=== PATIENT | female | born 1940 | race Caucasian/White ===

== ENCOUNTER 2019-02-18 01:11 | Inpatient (IN) | payer MEDICARE ==
[~2019-02-18] VITALS: Ht 152.4 cm; Wt 72.8 kg
--- NOTE | ~2019-02-18 | EKG ---
[place], [place] ELECTROCARDIOGRAM REPORT NAME: YODIT PHAM UNIT #: [id number] ROOM: 506 DOCTOR: EPIPHANY DRAFT REPORT BIRTHDATE: [birth year] [facility] Test Date: 2019-02-18 Test Time: 01:25:38 Pat Name: YODIT PHAM Department: Room: 506 Gender: F Combiner: : 1940 Requested By: FLEX MARQUEZ Order Number: [id number] Reading MD: Mukesh Mason MD Measurements Intervals Groom Rate: 70 P: 52 HI: 187 QRS: 10 QRSD: 84 T: 33 QT: 391 QTc: 422 Interpretive Statements Sinus rhythm Low voltage, precordial leads Electronically Signed On 02-18-2019 5:49:55 PDT by Mukesh Mason MD CM:EKGRPT:ELECTROCARDIOGRAM REPORT [id number] FLEX MARQUEZ MD EPIPHANY DRAFT REPORT FLEX MARQUEZ MD
[~2019-02-18 01:11] MED LIST: ASPIRIN ADULT L81 M1 PO; CIPRO500 MG PO; FLAGYL500 MG PO; FLAXSEED1000 MG PO; MASON NATURAL600 MG PO; METAMUCIL PACK3.4 GM PO; MIRALAX POWDER17 G1 PO
[2019-02-18 01:12] VITALS: BP 164/77
--- NOTE | 2019-02-18 01:15 | NUR ---
PT TO TREATMENT ROOM IN NO ACUTE DISTRESS, PLACED IN GOWN, ASSESSMENT COMPLETE, PT A&O, RESP EASY, LUNGS CLEAR, ABD SOFT WITH BS X 4, MD IN TO EVALUATE PT, CALL JACKSON GIVEN
[2019-02-18] MEDS ORDERED: PRESERVISION A1 EAC1 PO (01:25)
--- NOTE | 2019-02-18 01:25 | NUR ---
EKG COMPLETED ORDERED
--- NOTE | 2019-02-18 01:42 | NUR ---
PORTABLE CXR COMPLETE ORDERED, CLEAN CATCH UA OBTAINED AND SENT TO LAB, CLEAR, YELLOW URINE NOTED, LAB WORK DRAWN BY AIR ANTISUBMARINE OFFICER ORDERED BY
[2019-02-18 01:46] LABS: BASO # 0.1 10*3/uL (0.0-0.1); EOS # 0.1 10*3/uL (0.0-0.4); EOS % 0.9 % (1.0-4.0); HEMATOCRIT 38.9 % (37.0-47.0); HEMOGLOBIN 12.7 g/dl (12.0-16.0); LYMPH # 1.6 10*3/uL (1.3-4.4); MEAN CELL VOLUME 88.6 fl (81.0-99.0); MEAN CORPUSCULAR HGB 28.9 pg (27.0-31.0); MEAN CORPUSCULAR HGB CONC 32.6 g/dl (33.0-37.0); MEAN PLATELET VOLUME 9.2 fl (9.6-12.3); MONO # 0.7 10*3/uL (0.1-1.0); MONO % 9.4 % (3.0-9.0); NEUT # 5.2 10*3/uL (2.3-7.9); NEUT % 67.4 % (47.0-73.0); PLATELET COUNT AUTOMATED 242 10*3/uL (130-400); RED BLOOD COUNT 4.39 10*6/uL (4.10-5.10); RED CELL DISTRI WIDTH 12.5 % (0-14.5); WHITE BLOOD COUNT 7.7 10*3/uL (4.8-10.8)
--- NOTE | 2019-02-18 01:47 | NUR ---
CT COMPLETE ORDERED
[2019-02-18 01:57] LABS: ACT PARTIAL THROMBO TIME 24.8 SECONDS (20.0-32.1); INTERNATIONAL NORM RATIO 0.9 (2.0-3.5)
[2019-02-18 02:03] LABS: BILIRUBIN NEGATIVE (NEGATIVE); BLOOD NEGATIVE (NEGATIVE); CLARITY CLEAR (CLEAR); COLOR YELLOW (YELLOW); GLUCOSE NEGATIVE (NEGATIVE); KETONE NEGATIVE (NEGATIVE); LEUKO ESTERASE NEGATIVE (NEGATIVE); NITRITE NEGATIVE (NEGATIVE); SPECIFIC GRAVITY <= 1.005 (1.005-1.030); UROBILINOGEN 0.2 E.U./dl (0.2-1.0)
[2019-02-18 02:09] LABS: ALBUMIN 3.8 gm/dl (3.1-4.5); ALKALINE PHOSPHATASE 95 U/L (45-117); BUN 14 mg/dl (7-24); CHLORIDE 111 mmol/L (98-107); CREATININE 0.76 mg/dL (0.55-1.02); SGOT/AST 16 IU/L (3-35); SGPT/ALT 21 U/L (12-78); SODIUM 143 mmol/L (136-145); TOTAL PROTEIN 7.4 gm/dL (6.4-8.2); TROPONIN I < 0.015 ng/ml (<0.045)
[2019-02-18 02:11] LABS: RBC 0-2 rbc/hpf (0-2); WBC 0-2 wbc/hpf (0-5)
[2019-02-18 02:12] LABS: BACTERIA 1+
[2019-02-18 02:13] VITALS: BP 146/67
--- NOTE | 2019-02-18 02:43 | NUR ---
PT RESTING QUIETLY, DIZZINESS IMPROVED
[2019-02-18 03:11] VITALS: BP 162/80
[2019-02-18 04:05] VITALS: BP 165/74
--- NOTE | 2019-02-18 04:05 | NUR ---
A 78, admitted to , under the services of ESTEFANY Mallory DO with a diagnosis of VERTIGO. Chief complaint is DIZZINESS AND NAUSEA STARTING AT 1999. Patient arrived via bed from ER. Monitor applied. Initial assessment completed. Vital signs taken and recorded. ESTEFANY MALLORY DO notified of admission to TELEMETRY . Orders received. See assessment for past medical history, medications and allergies. Patient and/or family oriented to unit. [facility] visitation policy reviewed. Clothing/patient valuable form completed. MITCHELL HINDS
--- NOTE | 2019-02-18 04:07 | NUR ---
PT ADMITTED TO 5TH FLOOR VIA STRETCHER , SR ON MONITOR, RESP EASY, SALINE LOCK PATENT WITH NO REDNESS OR SWELLING, BELONGINGS WITH PT
--- NOTE | 2019-02-18 04:20 | NUR ---
DR ALBA PRESENT ON FLOOR TO ASSESS PATIENT AND DISCUSS PLAN OF CARE
--- NOTE | 2019-02-18 05:00 | NUR ---
ORTHOS: LAYING 152/84 102 SITTING 168/80 104 STANDING 120/64 78
[2019-02-18 06:17] LABS: BASO # 0.1 10*3/uL (0.0-0.1); EOS % 0.6 % (1.0-4.0); HEMATOCRIT 36.3 % (37.0-47.0); HEMOGLOBIN 11.8 g/dl (12.0-16.0); LYMPH # 1.8 10*3/uL (1.3-4.4); LYMPH % 25.6 % (27.0-41.0); MEAN CELL VOLUME 89.6 fl (81.0-99.0); MEAN CORPUSCULAR HGB 29.1 pg (27.0-31.0); MEAN CORPUSCULAR HGB CONC 32.5 g/dl (33.0-37.0); MEAN PLATELET VOLUME 9.6 fl (9.6-12.3); MONO # 0.8 10*3/uL (0.1-1.0); MONO % 11.1 % (3.0-9.0); NEUT # 4.4 10*3/uL (2.3-7.9); NEUT % 61.3 % (47.0-73.0); PLATELET COUNT AUTOMATED 238 10*3/uL (130-400); RED BLOOD COUNT 4.05 10*6/uL (4.10-5.10); RED CELL DISTRI WIDTH 12.7 % (0-14.5); WHITE BLOOD COUNT 7.2 10*3/uL (4.8-10.8)
[2019-02-18 06:20] LABS: ALBUMIN 3.4 gm/dl (3.1-4.5); ALKALINE PHOSPHATASE 85 U/L (45-117); BUN 13 mg/dl (7-24); CHLORIDE 110 mmol/L (98-107); CHOLESTEROL 208 mg/dL (<200); CREATININE 0.65 mg/dL (0.55-1.02); HDL CHOLESTEROL 46 mg/dl (40-60); LDL CHOLESTEROL 134 mg/dL (9-159); PHOSPHOROUS 2.4 mg/dL (2.5-4.9); POTASSIUM 3.7 mmol/L (3.5-5.1); SGOT/AST 15 IU/L (3-35); SGPT/ALT 18 U/L (12-78); SODIUM 142 mmol/L (136-145); TOTAL PROTEIN 6.8 gm/dL (6.4-8.2); TRIGLYCERIDES 141 mg/dl (<150); VLDL CHOLESTEROL 28 mg/dL (6-40)
[2019-02-18 06:26] LABS: THYROID STIM HORMONE (HS) 0.921 uIU/ml (0.358-4.75)
[2019-02-18 06:34] LABS: TROPONIN I < 0.015 ng/ml (<0.045)
[2019-02-18 07:45] VITALS: BP 154/80
--- NOTE | 2019-02-18 07:45 | NUR ---
PT RESTING IN BED. RESP-EASY AND REGULAR. NO C/O AT THIS TIME. DENIES N/V AND DIZZINESS. CALL LIGHT IN REACH. SEE SHIFT ASSESSMENT.
[2019-02-18 07:59] LABS: VITAMIN D, 25-HYDROXY 14.6 ng/mL (30-100)
[2019-02-18] MEDS ORDERED: LISINOPRIL10 M1 PO (09:36)
--- NOTE | 2019-02-18 10:54 | NUR ---
Discharge instructions reviewed with patient/family. Patient receptive and verbalizes understanding. Follow-up care arranged. Written instructions given to patient/family. HEPLOCK REMOVED 2X2 APPLIED. MONITOR REMOVED. VALENTÍN TRAN
--- NOTE | 2019-02-18 12:22 | NUR ---
PT ESCORTED VIA WHEELCHAIR FOR DISCHARGE WITH VISITOR AT HER SIDE.
== END 2019-02-18 12:22 | disposition home or self-care (01) | DRG 149 ==
LOC: ED 01:11 → 5E 03:40 → EDHOLD 03:40 → 5E 03:56
PROVIDERS: Emergency Medicine Emergency Medical Services; Student in an Organized Health Care Education/Training Program; ADMIT Internal Medicine
DX: R42 Dizziness and giddiness (principal); E44.1 Mild protein-calorie malnutrition; E87.8 Other disorders of electrolyte and fluid balance, not elsewhere classified; K59.00 Constipation, unspecified; E66.9 Obesity, unspecified; R03.0 Elevated blood-pressure reading, without diagnosis of hypertension; R73.9 Hyperglycemia, unspecified; E83.41 Hypermagnesemia; E83.39 Other disorders of phosphorus metabolism; Z88.6 Allergy status to analgesic agent; Z80.1 Family history of malignant neoplasm of trachea, bronchus and lung; Z79.82 Long term (current) use of aspirin; Z90.710 Acquired absence of both cervix and uterus; Z82.0 Family history of epilepsy and other diseases of the nervous system; Z68.31 Body mass index [BMI] 31.0-31.9, adult

== ENCOUNTER → 2020-11-01 | Outpatient (CLI) | payer MEDICARE ==
[~2020-11-01] MED LIST changes: +LISINOPRIL10 M1 PO; +PRESERVISION A1 EAC1 PO
== END | disposition home or self-care (01) ==
LOC: US 14:53
PROVIDERS: ATTEND Family Medicine
DX: M79.661 Pain in right lower leg (principal)

== ENCOUNTER 2020-11-02 15:21 | Emergency (ER) | payer MEDICARE ==
[~2020-11-02] VITALS: Ht 154.9 cm; Wt 70.3 kg
== END 2020-11-02 16:25 | disposition home or self-care (01) ==
LOC: ED 15:21
DX: S86.911A Strain of unspecified muscle(s) and tendon(s) at lower leg level, right leg, initial encounter (principal); Z88.6 Allergy status to analgesic agent; Z79.899 Other long term (current) drug therapy; Z79.82 Long term (current) use of aspirin; Z90.711 Acquired absence of uterus with remaining cervical stump; Z90.49 Acquired absence of other specified parts of digestive tract; Z98.890 Other specified postprocedural states; X58.XXXA Exposure to other specified factors, initial encounter; Y93.89 Activity, other specified; Y92.89 Other specified places as the place of occurrence of the external cause; Y99.8 Other external cause status

== ENCOUNTER 2021-04-21 10:27 | Emergency (ER) | payer MEDICARE ==
[~2021-04-21] VITALS: Ht 152.4 cm; Wt 71.2 kg
[2021-04-21 11:39] LABS: BASO % 0.3 % (0.0-1.0); LYMPH # 0.8 10*3/uL (1.3-4.4); LYMPH % 10.8 % (27.0-41.0); MEAN CELL VOLUME 90.5 fl (81.0-99.0); MEAN CORPUSCULAR HGB 28.6 pg (27.0-31.0); MEAN CORPUSCULAR HGB CONC 31.6 g/dl (33.0-37.0); MEAN PLATELET VOLUME 9.1 fl (9.6-12.3); MONO % 14.5 % (3.0-9.0); NEUT # 5.1 10*3/uL (2.3-7.9); PLATELET COUNT AUTOMATED 205 10*3/uL (130-400); RED CELL DISTRI WIDTH 13.2 % (0-14.5)
[2021-04-21 11:51] LABS: ACT PARTIAL THROMBO TIME 26.3 SECONDS (20.0-32.1)
[2021-04-21 11:55] LABS: ALBUMIN 3.3 gm/dl (3.1-4.5); ALKALINE PHOSPHATASE 102 U/L (45-117); BUN 12 mg/dl (7-24); CHLORIDE 107 mmol/L (98-107); CPK 74 U/L (26-192); CREATININE 0.77 mg/dL (0.55-1.02); POTASSIUM 4.1 mmol/L (3.5-5.1); SGOT/AST 20 IU/L (3-35); SGPT/ALT 21 U/L (12-78); SODIUM 138 mmol/L (136-145); TOTAL PROTEIN 7.3 gm/dL (6.4-8.2)
== END 2021-04-21 12:26 | disposition home or self-care (01) ==
LOC: ED 10:27
PROVIDERS: Emergency Medicine
DX: U07.1 COVID-19 (principal)

== ENCOUNTER 2021-04-24 11:58 | Inpatient (IN) | payer MEDICARE ==
[~2021-04-24] VITALS: Ht 152 cm; Wt 71.0 kg
[2021-04-24 12:04] VITALS: BP 123/50
[2021-04-24 13:10] LABS: BASO % 0.2 % (0.0-1.0); HEMATOCRIT 34.8 % (37.0-47.0); LYMPH # 0.7 10*3/uL (1.3-4.4); LYMPH % 14.4 % (27.0-41.0); MEAN CELL VOLUME 88.1 fl (81.0-99.0); MEAN CORPUSCULAR HGB 28.1 pg (27.0-31.0); MEAN CORPUSCULAR HGB CONC 31.9 g/dl (33.0-37.0); MEAN PLATELET VOLUME 9.1 fl (9.6-12.3); MONO % 19.5 % (3.0-9.0); NEUT # 3.2 10*3/uL (2.3-7.9); NEUT % 64.7 % (47.0-73.0); PLATELET COUNT AUTOMATED 176 10*3/uL (130-400); RED BLOOD COUNT 3.95 10*6/uL (4.10-5.10); RED CELL DISTRI WIDTH 13.4 % (0-14.5); WHITE BLOOD COUNT 4.9 10*3/uL (4.8-10.8)
[2021-04-24 13:26] LABS: ALBUMIN 2.8 gm/dl (3.1-4.5); ALKALINE PHOSPHATASE 76 U/L (45-117); BUN 18 mg/dl (7-24); CHLORIDE 103 mmol/L (98-107); CREATININE 0.66 mg/dL (0.55-1.02); POTASSIUM 3.5 mmol/L (3.5-5.1); SGOT/AST 29 IU/L (3-35); SGPT/ALT 23 U/L (12-78); SODIUM 134 mmol/L (136-145); TOTAL PROTEIN 6.5 gm/dL (6.4-8.2)
[2021-04-24 13:54] VITALS: BP 120/58
[2021-04-24 17:37] VITALS: BP 125/61
[2021-04-24 18:40] VITALS: BP 134/71
[2021-04-24 18:46] VITALS: BP 134/71
[2021-04-25] VITALS: BP 149/77
[2021-04-25 06:02] LABS: ALBUMIN 2.8 gm/dl (3.1-4.5); ALKALINE PHOSPHATASE 81 U/L (45-117); BUN 18 mg/dl (7-24); CHLORIDE 106 mmol/L (98-107); SGOT/AST 31 IU/L (3-35); SGPT/ALT 25 U/L (12-78); SODIUM 138 mmol/L (136-145)
[2021-04-25 06:04] LABS: BASO % 0.3 % (0.0-1.0); HEMATOCRIT 36.1 % (37.0-47.0); LYMPH # 0.8 10*3/uL (1.3-4.4); LYMPH % 21.7 % (27.0-41.0); MEAN CELL VOLUME 85.1 fl (81.0-99.0); MEAN CORPUSCULAR HGB 28.1 pg (27.0-31.0); MEAN PLATELET VOLUME 9.6 fl (9.6-12.3); MONO # 0.6 10*3/uL (0.1-1.0); MONO % 17.5 % (3.0-9.0); NEUT # 2.1 10*3/uL (2.3-7.9); NEUT % 59.7 % (47.0-73.0); PLATELET COUNT AUTOMATED 211 10*3/uL (130-400); RED BLOOD COUNT 4.24 10*6/uL (4.10-5.10); RED CELL DISTRI WIDTH 13.1 % (0-14.5); WHITE BLOOD COUNT 3.6 10*3/uL (4.8-10.8)
[2021-04-25 08:00] VITALS: BP 142/78
[2021-04-25 12:00] VITALS: BP 129/79
[2021-04-25 16:00] VITALS: BP 145/76
[2021-04-25 20:00] VITALS: BP 139/65
[2021-04-26] VITALS: BP 138/66
[2021-04-26 06:00] LABS: ALBUMIN 2.7 gm/dl (3.1-4.5); ALKALINE PHOSPHATASE 75 U/L (45-117); BUN 22 mg/dl (7-24); CHLORIDE 106 mmol/L (98-107); CREATININE 0.64 mg/dL (0.55-1.02); POTASSIUM 4.1 mmol/L (3.5-5.1); SGOT/AST 32 IU/L (3-35); SGPT/ALT 25 U/L (12-78); SODIUM 139 mmol/L (136-145); TOTAL PROTEIN 6.7 gm/dL (6.4-8.2)
[2021-04-26 06:20] LABS: BASO % 0.2 % (0.0-1.0); HEMATOCRIT 35.7 % (37.0-47.0); LYMPH # 1.6 10*3/uL (1.3-4.4); LYMPH % 15.8 % (27.0-41.0); MEAN CELL VOLUME 86.9 fl (81.0-99.0); MEAN CORPUSCULAR HGB 28.5 pg (27.0-31.0); MEAN CORPUSCULAR HGB CONC 32.8 g/dl (33.0-37.0); MEAN PLATELET VOLUME 9.8 fl (9.6-12.3); MONO # 1.3 10*3/uL (0.1-1.0); MONO % 12.8 % (3.0-9.0); NEUT # 6.9 10*3/uL (2.3-7.9); NEUT % 70.5 % (47.0-73.0); PLATELET COUNT AUTOMATED 245 10*3/uL (130-400); RED BLOOD COUNT 4.11 10*6/uL (4.10-5.10); RED CELL DISTRI WIDTH 12.9 % (0-14.5); WHITE BLOOD COUNT 9.8 10*3/uL (4.8-10.8)
[2021-04-26 08:00] VITALS: BP 149/63
[2021-04-26 12:00] VITALS: BP 139/68
[2021-04-26] MEDS ORDERED: OXYGEN NAS (12:25)
[2021-04-26] MEDS ORDERED: DEXAMETHASONE6 MG PO (12:25)
== END 2021-04-26 16:12 | disposition home or self-care (01) | DRG 177 ==
LOC: ED 11:58 → 4E 15:41 → EDHOLD 15:41 → 4E 19:11
PROVIDERS: Internal Medicine; Student in an Organized Health Care Education/Training Program; ADMIT Internal Medicine; ATTEND Internal Medicine
PROC: XW033E5 Introduction of Remdesivir Anti-infective into Peripheral Vein, Percutaneous Approach, New Technology Group 5 (ICD-10-PCS; principal; 2021-04-25)
DX: U07.1 COVID-19 (principal); J96.01 Acute respiratory failure with hypoxia; E43 Unspecified severe protein-calorie malnutrition; E87.1 Hypo-osmolality and hyponatremia; D64.9 Anemia, unspecified; R73.9 Hyperglycemia, unspecified; E55.9 Vitamin D deficiency, unspecified; E66.9 Obesity, unspecified; Z68.30 Body mass index [BMI] 30.0-30.9, adult; I10 Essential (primary) hypertension; Z90.49 Acquired absence of other specified parts of digestive tract; Z90.710 Acquired absence of both cervix and uterus; Z88.6 Allergy status to analgesic agent; Z79.82 Long term (current) use of aspirin; Z79.899 Other long term (current) drug therapy; Z80.1 Family history of malignant neoplasm of trachea, bronchus and lung; Z80.42 Family history of malignant neoplasm of prostate

== ENCOUNTER 2021-06-01 18:09 | Emergency (ER) | payer MEDICARE ==
[~2021-06-01] VITALS: Ht 152.4 cm; Wt 70.3 kg
[~2021-06-01 18:09] MED LIST changes: +DEXAMETHASONE6 MG PO; +OXYGEN NAS
== END 2021-06-01 20:46 | disposition home or self-care (01) ==
LOC: ED 18:09
DX: S93.402A Sprain of unspecified ligament of left ankle, initial encounter (principal); Z88.6 Allergy status to analgesic agent; Z90.49 Acquired absence of other specified parts of digestive tract; Z98.890 Other specified postprocedural states; Z90.710 Acquired absence of both cervix and uterus; W11.XXXA Fall on and from ladder, initial encounter; Y93.89 Activity, other specified; Y92.89 Other specified places as the place of occurrence of the external cause; Y99.8 Other external cause status